=== PATIENT | female | born 1995 | race Caucasian/White ===

== ENCOUNTER 2017-04-26 14:26 | Emergency (ER) | payer SELFPAY ==
--- NOTE | 2017-04-26 14:49 | UC ---
Neck Pain HPI - HPI Summary HPI Summary: 21 YEAR OLD MALE PRESENTS WITH COMPLAINS OF LEFT SIDED NECK PAIN WITH NO TRAUMA. - History of Current Complaint Chief Complaint: UCGeneralIllness Stated Complaint: NECK PAIN Time Seen by Provider: 04/26/17 14:48 Hx Obtained From: Patient Onset/Duration Of Injury/Symptoms: Hours Onset/Duration: Sudden Onset, Lasting Hours Severity: Moderate Pain Scale Used: 0-10 Numeric - 7 Location: Discrete At: - LEFT NECK Character: Sharp Aggravating Factors: Position Alleviating Factors: Position Associated Signs & Symptoms: Positive: Negative, Weakness - Allergies/Home Medications Allergies/Adverse Reactions: Allergies Allergy/AdvReac Type Severity Reaction Status Date / Time Amoxicillin Allergy Hives Verified 04/26/17 14:52 Penicillins Allergy Hives Verified 04/26/17 14:52 Home Medications: Home Medications Lisdexamfetamine Dimesylate [Vyvanse] 1 cap SEE INSTRUCTIONS 04/26/17 [History Confirmed 04/26/17] PMH/Surg Hx/FS Hx/Imm Hx Previously Healthy: Yes - Surgical History Surgical History: None - Family History Known Family History: Positive: None - Social History Occupation: Employed Full-time Lives: With Family Alcohol Use: None Review Of Systems Constitutional: Positive: Negative Skin: Positive: Negative Eyes: Positive: Negative ENT: Positive: Negative Respiratory: Positive: Negative Cardiovascular: Positive: Negative Gastrointestinal: Positive: Negative Musculoskeletal: Positive: Myalgia, Other: - LEFT NECK PAIN/SPASM All Other Systems Reviewed And Are Negative: Yes Physical Exam Triage Information Reviewed: Yes Appearance: Well-Appearing Vital Signs Reviewed: Yes Eye Exam: Normal ENT Exam: Normal Dental Exam: Normal Neck exam: Normal Neck: Positive: 1 Respiratory Exam: Normal Cardiovascular Exam: Normal Abdominal Exam: Normal Musculoskeletal: Positive: Other: - LEFT NECK PAIN Neurological Exam: Normal Psychological Exam: Normal Skin Exam: Normal Neck Pain Course/Dx - Differential Dx/Diagnosis Provider Diagnoses: LEFT NECK SPASM/MUSCLE PAIN Discharge - Discharge Plan Condition: Stable Disposition: HOME Prescriptions: Ibuprofen TAB* [Motrin TAB* 800 MG] 800 mg PO Q8H PRN #30 tab PRN Reason: Pain Methocarbamol TAB* [Robaxin 500 MG TAB*] 500 mg PO TID PRN #30 tab PRN Reason: Spasms Patient Education Materials: Neck Pain (ED) Referrals: No Primary Care Phys,NOPCP [Primary Care Provider] -
== END 2017-04-26 15:16 | disposition home or self-care (01) ==
LOC: UCCORT 14:26
DX: M62.838 Other muscle spasm (principal); M79.1 Myalgia
CPT/HCPCS: 99202; G0463